=== PATIENT | male | born 1975 | race Caucasian/White ===

== ENCOUNTER → 2016-07-17 | Outpatient (CLI) | payer MEDICAID ==
[~2016-07-17] MED LIST: ACTOS 15MG TAB15 MG PO; ADVICOR 20 MG-51 TER PO; ALLEGRA180 MG PO; AMBIEN5 MG PO; ASPIRIN 32325 MG/TAB PO; C-PAP MACHINE; CLARITIN; CLARITIN 1010 MG/TAB PO; COZAAR 50MG50 MG/TAB PO; ECOTRIN325 MG PO; FLONASE NASAL S16 GM NS; GLUCOPHAGE PO; GLUCOPHAGE XR500 M1 PO; HUMALOGKP50/50; HUMALOGKP50/50 SC; HYZAAR 12.5 MG-1 TAB PO; JANUVIA 100MG100 MG PO; LORTAB 5/500 501 TAB PO; NAPROSYN500 MG PO; NOVOLOG MIX 70/10 ML SQ; NOVOLOG100 U/ML IV; PERCOCET 325 MG1 TA2 PO; PROAIR HFA0.09 MG/AC; SIMCOR 500 MG-21 TER PO; SINGULAIR10 MG PO; TYLENOL W/COD1 UDTAB PO; VITAMIN B121000 MC2 SL; ZYRTEC 10MG PO; ZYRTEC 10MG10 MG PO
== END ==
LOC: COL.VAS 07-04 09:00
DX: I83.008 Varicose veins of unspecified lower extremity with ulcer other part of lower leg (principal); L97.819 Non-pressure chronic ulcer of other part of right lower leg with unspecified severity; L97.829 Non-pressure chronic ulcer of other part of left lower leg with unspecified severity; M79.662 Pain in left lower leg; M79.661 Pain in right lower leg; M79.89 Other specified soft tissue disorders

== ENCOUNTER → 2016-11-29 | Outpatient (CLI) | payer MEDICAID | LOC: WCC 09:30 | DX: L97.829 Non-pressure chronic ulcer of other part of left lower leg with unspecified severity (principal); L97.819 Non-pressure chronic ulcer of other part of right lower leg with unspecified severity; I87.2 Venous insufficiency (chronic) (peripheral) | CPT/HCPCS: G0463 ==

== ENCOUNTER 2017-12-26 11:18 | Inpatient (IN) | payer MEDICAID ==
[~2017-12-26] VITALS: Ht 193 cm; Wt 132.0 kg
[2017-12-26 12:20] LABS: BASO % 0.2 % (0.0-2.0); EOS % 0.1 % (0-4.0); GRAN # 14.1 (1.4-6.5); GRAN % 84.8 % (42.2-75.2); HEMOGLOBIN 13.1 g/dl (13.5-18.0); LYMPH # 0.9 (1.2-3.4); LYMPH % 5.4 % (20.0-51.0); MEAN CELL VOLUME 81 fl (80.0-100.0); MEAN CORPUSCULAR HEMOGLOBIN 27 pg (27.0-31.0); MEAN CORPUSCULAR HGB CONC 33 g/dl (33.0-37.0); MEAN PLATELET VOLUME 10.5 fl (7.4-10.4); MONO # 1.5 (0.1-0.6); PLATELET COUNT 246 K/mm3 (130-400); RED BLOOD COUNT 4.92 M/mm3 (4.20-5.60); REDCELL DISTRIBUTION WIDTH-CV 13.1 % (11.5-14.5)
[2017-12-26 12:32] LABS: ALBUMIN 4.1 gm/dL (3.5-5.0); BILIRUBIN,TOTAL 0.9 mg/dL (0.0-1.0); CALCIUM 9.2 mg/dL (8.4-10.2); CREATININE, serum 1.41 mg/dL (0.66-1.25); POTASSIUM 3.7 mmol/L (3.4-5.0); TOTAL PROTEIN 8.2 gm/dL (6.4-8.2)
[2017-12-26 12:43] LABS: C-REACTIVE PROTEIN 22.1 mg/dL (0.0-0.9)
[2017-12-26] MEDS ORDERED: ACTOS 15MG TAB15 MG PO (18:24)
[2017-12-26] MEDS ORDERED: LOMOTIL 0.025 M1 TAB PO (18:26)
[2017-12-26] MEDS ORDERED: JANUVIA50 MG PO (18:29)
[2017-12-26] MEDS ORDERED: CANA100T PO (18:33)
[2017-12-26] MEDS ORDERED: HUMULIN R 10100 U/ML SQ (18:38)
[2017-12-26] MEDS ORDERED: HUMULIN N 10100 U/ML SQ (18:39)
[2017-12-26] MEDS ORDERED: AMBIEN 10MG10 MG PO (19:50)
[2017-12-26 20:00] VITALS: BP 100/49; PULSE 96; TEMP 97.8
[2017-12-26] MEDS ORDERED: FLONASE NASAL S16 GM NS (21:15)
[2017-12-26] MEDS ORDERED: NIACIN 64 MG-501 TA1 PO (21:22)
[2017-12-26] MEDS ORDERED: ZOCOR 20MG20 MG PO (21:23)
[2017-12-26] MEDS ORDERED: ZOCOR 80MG80 MG PO (21:24)
[2017-12-26] MEDS ORDERED: HYZAAR 25 MG-101 TAB PO (21:40)
[2017-12-26] MEDS ORDERED: ZOCOR 40MG40 MG PO (21:42)
[2017-12-26] MEDS ORDERED: ACTOS30 MG PO (21:43)
[2017-12-26] MEDS ORDERED: NIASPAN1000 MG PO (21:44)
[2017-12-26] MEDS ORDERED: CANA300T PO (21:45)
[2017-12-26] MEDS ORDERED: TRICOR145 MG PO (21:47)
[2017-12-26] MEDS ORDERED: D3-5050000 IU PO (21:49)
[2017-12-26] MEDS ORDERED: TYLENOL W/COD1 UDTAB PO (21:51)
[2017-12-26 23:20] VITALS: BP 104/60; PULSE 94; TEMP 98.2
[2017-12-27 03:35] VITALS: BP 91/53; PULSE 104; TEMP 99.7
[2017-12-27 06:52] LABS: MEAN CELL VOLUME 83 fl (80.0-100.0); MEAN CORPUSCULAR HGB CONC 32 g/dl (33.0-37.0); MEAN PLATELET VOLUME 10.9 fl (7.4-10.4); PLATELET COUNT 256 K/mm3 (130-400); RED BLOOD COUNT 4.15 M/mm3 (4.20-5.60); REDCELL DISTRIBUTION WIDTH-CV 13.1 % (11.5-14.5)
[2017-12-27 06:55] LABS: HEMATOCRIT 34.3 % (42.0-52.0); HEMOGLOBIN 11.1 g/dl (13.5-18.0); MEAN CORPUSCULAR HEMOGLOBIN 27 pg (27.0-31.0)
[2017-12-27 07:07] LABS: CALCIUM 8.2 mg/dL (8.4-10.2); CREATININE, serum 1.57 mg/dL (0.66-1.25); POTASSIUM 3.4 mmol/L (3.4-5.0)
[2017-12-27 07:22] VITALS: BP 88/41; PULSE 99; TEMP 100.1
[2017-12-27 07:34] LABS: BAND 25 % (0-10); LYMPHOCYTE 2 % (20.0-51.0); NEUTROPHILS 67 % (42.0-75.2); TOXIC GRANULATION PRESENT
[2017-12-27 11:40] VITALS: BP 100/50; PULSE 99; TEMP 99.1
[2017-12-27 16:26] VITALS: BP 109/45; PULSE 57; TEMP 100.3
[2017-12-27 20:00] VITALS: BP 92/40; PULSE 94; TEMP 100.4
[2017-12-28 00:26] VITALS: BP 91/51; PULSE 98; TEMP 98.8
[2017-12-28 07:10] LABS: MEAN CELL VOLUME 83 fl (80.0-100.0); MEAN CORPUSCULAR HEMOGLOBIN 27 pg (27.0-31.0); MEAN CORPUSCULAR HGB CONC 32 g/dl (33.0-37.0); MEAN PLATELET VOLUME 10.8 fl (7.4-10.4); PLATELET COUNT 244 K/mm3 (130-400); RED BLOOD COUNT 3.74 M/mm3 (4.20-5.60); REDCELL DISTRIBUTION WIDTH-CV 13.2 % (11.5-14.5)
[2017-12-28 07:18] LABS: CALCIUM 8.2 mg/dL (8.4-10.2); CREATININE, serum 1.79 mg/dL (0.66-1.25); POTASSIUM 3.7 mmol/L (3.4-5.0)
[2017-12-28 07:22] LABS: HEMATOCRIT 31.1 % (42.0-52.0)
[2017-12-28 07:55] VITALS: BP 96/56; PULSE 89; TEMP 99.4
[2017-12-28 09:53] LABS: BAND 10 % (0-10); LYMPHOCYTE 5 % (20.0-51.0); NEUTROPHILS 80 % (42.0-75.2); PLATELET ESTIMATE NORMAL (NORMAL)
[2017-12-28 12:31] VITALS: BP 112/53; PULSE 99; TEMP 98.5
[2017-12-28 16:39] VITALS: BP 132/52; PULSE 99; TEMP 98.2
[2017-12-28 20:00] VITALS: BP 107/44; PULSE 98; TEMP 100.6
[2017-12-28 22:01] VITALS: TEMP 99.1
[2017-12-29 01:18] VITALS: BP 118/55; PULSE 78; TEMP 100.6
[2017-12-29 04:00] VITALS: BP 111/52; PULSE 79; TEMP 98.6
[2017-12-29 07:00] LABS: MEAN CELL VOLUME 82 fl (80.0-100.0); MEAN CORPUSCULAR HGB CONC 32 g/dl (33.0-37.0); MEAN PLATELET VOLUME 10.8 fl (7.4-10.4); PLATELET COUNT 266 K/mm3 (130-400); RED BLOOD COUNT 3.61 M/mm3 (4.20-5.60); REDCELL DISTRIBUTION WIDTH-CV 13.5 % (11.5-14.5)
[2017-12-29 07:12] LABS: HEMATOCRIT 29.7 % (42.0-52.0); HEMOGLOBIN 9.6 g/dl (13.5-18.0); MEAN CORPUSCULAR HEMOGLOBIN 27 pg (27.0-31.0)
[2017-12-29 07:15] LABS: CALCIUM 8.4 mg/dL (8.4-10.2); CREATININE, serum 1.52 mg/dL (0.66-1.25); MAGNESIUM 2.3 mg/dL (1.6-2.3); POTASSIUM 3.7 mmol/L (3.4-5.0)
[2017-12-29 08:36] VITALS: BP 116/61; PULSE 86; TEMP 97.9
[2017-12-29 10:09] LABS: BAND 7 % (0-10); LYMPHOCYTE 6 % (20.0-51.0); NEUTROPHILS 79 % (42.0-75.2)
[2017-12-29 10:10] LABS: PLATELET ESTIMATE NORMAL (NORMAL)
[2017-12-29 12:21] VITALS: BP 133/56; PULSE 93; TEMP 98.4
[2017-12-29 16:10] VITALS: BP 123/54; PULSE 77; TEMP 98.3
[2017-12-29 19:36] VITALS: BP 139/59; PULSE 104; TEMP 99.4
[2017-12-30 00:01] VITALS: BP 104/63; PULSE 81; TEMP 98.6
[2017-12-30 07:15] VITALS: BP 116/57; PULSE 74; TEMP 98.1
[2017-12-30 07:34] LABS: HEMATOCRIT 29.7 % (42.0-52.0); HEMOGLOBIN 9.7 g/dl (13.5-18.0); MEAN CELL VOLUME 81 fl (80.0-100.0); MEAN CORPUSCULAR HEMOGLOBIN 27 pg (27.0-31.0); MEAN CORPUSCULAR HGB CONC 33 g/dl (33.0-37.0); MEAN PLATELET VOLUME 10.5 fl (7.4-10.4); PLATELET COUNT 305 K/mm3 (130-400); RED BLOOD COUNT 3.66 M/mm3 (4.20-5.60); REDCELL DISTRIBUTION WIDTH-CV 13.6 % (11.5-14.5)
[2017-12-30 07:46] LABS: CALCIUM 8.4 mg/dL (8.4-10.2); CREATININE, serum 1.16 mg/dL (0.66-1.25); POTASSIUM 3.6 mmol/L (3.4-5.0)
[2017-12-30 08:11] LABS: C-REACTIVE PROTEIN 29.9 mg/dL (0.0-0.9)
[2017-12-30 12:03] VITALS: BP 117/55; PULSE 77; TEMP 98.2
[2017-12-30 12:05] LABS: BAND 13 % (0-10); LYMPHOCYTE 9 % (20.0-51.0); MYELOCYTE 1 % (0-0); NEUTROPHILS 63 % (42.0-75.2); PLATELET ESTIMATE NORMAL (NORMAL)
[2017-12-30 12:06] LABS: HYPOCHROMIA 2+
[2017-12-30 16:31] VITALS: BP 148/72; PULSE 84; TEMP 100.6
[2017-12-30 21:27] VITALS: BP 99/42; PULSE 80; TEMP 100.3
[2017-12-31 00:11] VITALS: BP 119/97; PULSE 80; TEMP 99.9
[2017-12-31 04:29] VITALS: BP 102/38; PULSE 61; TEMP 97.9
[2017-12-31 06:37] LABS: BASO # 0.1 (0.0-0.2); BASO % 0.5 % (0.0-2.0); EOS # 0.3 (0.0-0.7); EOS % 1.7 % (0-4.0); GRAN # 12.5 (1.4-6.5); GRAN % 70.2 % (42.2-75.2); HEMOGLOBIN 10.3 g/dl (13.5-18.0); LYMPH % 11.4 % (20.0-51.0); MEAN CELL VOLUME 81 fl (80.0-100.0); MEAN CORPUSCULAR HEMOGLOBIN 26 pg (27.0-31.0); MEAN CORPUSCULAR HGB CONC 32 g/dl (33.0-37.0); MEAN PLATELET VOLUME 10.1 fl (7.4-10.4); MONO # 2.6 (0.1-0.6); MONO % 14.6 % (1.7-9.3); PLATELET COUNT 309 K/mm3 (130-400); RED BLOOD COUNT 3.93 M/mm3 (4.20-5.60); REDCELL DISTRIBUTION WIDTH-CV 13.9 % (11.5-14.5)
[2017-12-31 06:44] LABS: HEMATOCRIT 31.9 % (42.0-52.0)
[2017-12-31 06:54] LABS: CALCIUM 8.5 mg/dL (8.4-10.2); CREATININE, serum 0.98 mg/dL (0.66-1.25); POTASSIUM 3.8 mmol/L (3.4-5.0)
[2017-12-31 07:24] VITALS: BP 133/55; PULSE 66; TEMP 97.9
[2017-12-31 07:27] LABS: BAND 11 % (0-10); EOSINOPHIL 2 % (0-4); LYMPHOCYTE 13 % (20.0-51.0); NEUTROPHILS 61 % (42.0-75.2); PLATELET ESTIMATE NORMAL (NORMAL)
[2017-12-31 07:28] LABS: HYPOCHROMIA 1+
[2017-12-31 11:35] VITALS: BP 119/77; PULSE 72; TEMP 98.6
[2017-12-31 23:30] VITALS: BP 111/54; PULSE 74; TEMP 98.6
[2018-01-01 06:21] VITALS: BP 99/50; PULSE 79; TEMP 98.6
[2018-01-01 06:53] LABS: HEMOGLOBIN 8.1 g/dl (13.5-18.0); MEAN CELL VOLUME 82 fl (80.0-100.0); MEAN CORPUSCULAR HEMOGLOBIN 26 pg (27.0-31.0); MEAN CORPUSCULAR HGB CONC 32 g/dl (33.0-37.0); MEAN PLATELET VOLUME 10.2 fl (7.4-10.4); PLATELET COUNT 327 K/mm3 (130-400); RED BLOOD COUNT 3.06 M/mm3 (4.20-5.60); REDCELL DISTRIBUTION WIDTH-CV 14.1 % (11.5-14.5)
[2018-01-01 07:00] LABS: CALCIUM 7.9 mg/dL (8.4-10.2); CREATININE, serum 0.86 mg/dL (0.66-1.25); POTASSIUM 3.8 mmol/L (3.4-5.0)
[2018-01-01 07:42] LABS: BAND 6 % (0-10); EOSINOPHIL 8 % (0-4); LYMPHOCYTE 13 % (20.0-51.0); NEUTROPHILS 61 % (42.0-75.2)
[2018-01-01 07:43] LABS: HYPOCHROMIA 1+; PLATELET ESTIMATE NORMAL (NORMAL)
[2018-01-01 11:42] VITALS: BP 107/45; PULSE 97; TEMP 98.2
[2018-01-01 15:50] VITALS: BP 106/51; PULSE 83; TEMP 98.2
[2018-01-01 20:00] VITALS: BP 108/43; PULSE 82; TEMP 99.1
[2018-01-02] VITALS (7 sets, daily range): BP systolic 107–126; BP diastolic 42–62; PULSE 67–87; TEMP 97.6–99.2
[2018-01-02 07:25] LABS: MEAN CELL VOLUME 83 fl (80.0-100.0); MEAN CORPUSCULAR HGB CONC 32 g/dl (33.0-37.0); MEAN PLATELET VOLUME 9.7 fl (7.4-10.4); PLATELET COUNT 367 K/mm3 (130-400); RED BLOOD COUNT 3.09 M/mm3 (4.20-5.60); REDCELL DISTRIBUTION WIDTH-CV 14.1 % (11.5-14.5)
[2018-01-02 07:29] LABS: HEMATOCRIT 25.5 % (42.0-52.0); HEMOGLOBIN 8.1 g/dl (13.5-18.0); MEAN CORPUSCULAR HEMOGLOBIN 26 pg (27.0-31.0)
[2018-01-02 07:40] LABS: CALCIUM 8.3 mg/dL (8.4-10.2); CREATININE, serum 0.82 mg/dL (0.66-1.25); POTASSIUM 3.9 mmol/L (3.4-5.0)
[2018-01-02 10:02] LABS: BAND 11 % (0-10); EOSINOPHIL 2 % (0-4); HYPOCHROMIA 2+; LYMPHOCYTE 15 % (20.0-51.0); METAMYELOCYTE 1 % (0-0); NEUTROPHILS 61 % (42.0-75.2); PLATELET ESTIMATE NORMAL (NORMAL)
[2018-01-03 04:00] VITALS: BP 113/65; PULSE 79; TEMP 98.2
[2018-01-03 07:05] LABS: MEAN CELL VOLUME 84 fl (80.0-100.0); MEAN CORPUSCULAR HGB CONC 31 g/dl (33.0-37.0); MEAN PLATELET VOLUME 9.6 fl (7.4-10.4); PLATELET COUNT 436 K/mm3 (130-400); RED BLOOD COUNT 3.28 M/mm3 (4.20-5.60); REDCELL DISTRIBUTION WIDTH-CV 14.2 % (11.5-14.5)
[2018-01-03 07:09] LABS: HEMATOCRIT 27.6 % (42.0-52.0); HEMOGLOBIN 8.5 g/dl (13.5-18.0); MEAN CORPUSCULAR HEMOGLOBIN 26 pg (27.0-31.0)
[2018-01-03 07:16] LABS: CALCIUM 8.6 mg/dL (8.4-10.2); CREATININE, serum 0.87 mg/dL (0.66-1.25); POTASSIUM 4.3 mmol/L (3.4-5.0)
[2018-01-03 09:01] LABS: BAND 1 % (0-10); EOSINOPHIL 2 % (0-4); LYMPHOCYTE 18 % (20.0-51.0); METAMYELOCYTE 3 % (0-0); MICROCYTOSIS 1+; NEUTROPHILS 73 % (42.0-75.2); PLATELET ESTIMATE INCREASED (NORMAL)
[2018-01-03 10:05] VITALS: BP 106/46; PULSE 61; TEMP 97.9
[2018-01-03 11:07] VITALS: BP 114/56; PULSE 60; TEMP 97.8
[2018-01-03 16:39] VITALS: BP 122/55; PULSE 87; TEMP 100.5
[2018-01-03 20:40] VITALS: BP 98/49; PULSE 89; TEMP 100.2
[2018-01-04] VITALS (7 sets, daily range): BP systolic 104–130; BP diastolic 38–65; PULSE 74–93; TEMP 97.5–100.2
[2018-01-04 07:36] LABS: MEAN CELL VOLUME 84 fl (80.0-100.0); MEAN CORPUSCULAR HGB CONC 31 g/dl (33.0-37.0); MEAN PLATELET VOLUME 9.5 fl (7.4-10.4); PLATELET COUNT 394 K/mm3 (130-400); RED BLOOD COUNT 3.04 M/mm3 (4.20-5.60); REDCELL DISTRIBUTION WIDTH-CV 14.2 % (11.5-14.5)
[2018-01-04 07:48] LABS: HEMATOCRIT 25.5 % (42.0-52.0); MEAN CORPUSCULAR HEMOGLOBIN 26 pg (27.0-31.0)
[2018-01-04 07:54] LABS: CALCIUM 8.2 mg/dL (8.4-10.2); CREATININE, serum 0.96 mg/dL (0.66-1.25); POTASSIUM 4.3 mmol/L (3.4-5.0)
[2018-01-04 08:22] LABS: BAND 5 % (0-10); EOSINOPHIL 1 % (0-4); LYMPHOCYTE 15 % (20.0-51.0); NEUTROPHILS 73 % (42.0-75.2)
[2018-01-04 08:23] LABS: HYPOCHROMIA 2+; PLATELET ESTIMATE NORMAL (NORMAL)
[2018-01-05 03:56] VITALS: BP 111/49; PULSE 87; TEMP 98.3
[2018-01-05 08:21] VITALS: BP 116/58; PULSE 101; TEMP 98.4
[2018-01-05 08:53] LABS: MEAN CELL VOLUME 82 fl (80.0-100.0); MEAN CORPUSCULAR HGB CONC 32 g/dl (33.0-37.0); MEAN PLATELET VOLUME 9.6 fl (7.4-10.4); PLATELET COUNT 462 K/mm3 (130-400); RED BLOOD COUNT 3.37 M/mm3 (4.20-5.60)
[2018-01-05 08:56] LABS: HEMATOCRIT 27.6 % (42.0-52.0); HEMOGLOBIN 8.8 g/dl (13.5-18.0); MEAN CORPUSCULAR HEMOGLOBIN 26 pg (27.0-31.0)
[2018-01-05 09:08] LABS: BAND 7 % (0-10); EOSINOPHIL 4 % (0-4); LYMPHOCYTE 12 % (20.0-51.0); METAMYELOCYTE 1 % (0-0); NEUTROPHILS 71 % (42.0-75.2); PLATELET ESTIMATE INCREASED (NORMAL)
[2018-01-05 09:09] LABS: CALCIUM 8.6 mg/dL (8.4-10.2); CREATININE, serum 0.91 mg/dL (0.66-1.25); HYPOCHROMIA 2+; POTASSIUM 4.5 mmol/L (3.4-5.0)
[2018-01-05 11:52] VITALS: BP 121/62; PULSE 81; TEMP 97.9
[2018-01-05 16:24] VITALS: BP 125/56; PULSE 75; TEMP 98.2
[2018-01-05 20:00] VITALS: BP 98/60; PULSE 85; TEMP 97.4
[2018-01-06] VITALS (8 sets, daily range): BP systolic 101–120; BP diastolic 50–63; PULSE 70–98; TEMP 97.2–99.3
[2018-01-06 06:32] LABS: BASO # 0.1 (0.0-0.2); BASO % 0.3 % (0.0-2.0); EOS # 0.4 (0.0-0.7); EOS % 2.8 % (0-4.0); GRAN # 11.9 (1.4-6.5); GRAN % 76.4 % (42.2-75.2); HEMOGLOBIN 9.3 g/dl (13.5-18.0); LYMPH # 1.8 (1.2-3.4); LYMPH % 11.5 % (20.0-51.0); MEAN CELL VOLUME 83 fl (80.0-100.0); MEAN CORPUSCULAR HEMOGLOBIN 26 pg (27.0-31.0); MEAN CORPUSCULAR HGB CONC 31 g/dl (33.0-37.0); MEAN PLATELET VOLUME 9.5 fl (7.4-10.4); MONO # 1.2 (0.1-0.6); MONO % 7.7 % (1.7-9.3); PLATELET COUNT 520 K/mm3 (130-400); RED BLOOD COUNT 3.61 M/mm3 (4.20-5.60); REDCELL DISTRIBUTION WIDTH-CV 13.9 % (11.5-14.5)
[2018-01-06 06:41] LABS: CREATININE, serum 0.95 mg/dL (0.66-1.25); POTASSIUM 4.7 mmol/L (3.4-5.0)
[2018-01-06 08:38] LABS: PATHOLOGY DIFF REVIEW OK
[2018-01-06 20:27] LABS: PH 7 (5-8); SQUAMOUS EPITHELIAL None Seen /hpf; URINE APPEARANCE Clear; URINE BACTERIA None Seen /hpf; URINE BILIRUBIN Negative (NEGATIVE); URINE BLOOD Negative (NEGATIVE); URINE COLOR Straw; URINE GLUCOSE 1+ (NEGATIVE); URINE KETONE Negative (NEGATIVE); URINE LEUKOCYTE ESTERASE Negative (NEGATIVE); URINE NITRATE Negative (NEGATIVE); URINE PROTEIN(semi-quant) Negative (NEGATIVE); URINE RBC None Seen /hpf; URINE UROBILINOGEN Negative (NEGATIVE)
[2018-01-06 20:40] LABS: COLLECTION METHOD CLEAN CATCH
[2018-01-07 03:20] VITALS: BP 119/52; PULSE 84; TEMP 98.4
[2018-01-07 07:11] LABS: BASO # 0.1 (0.0-0.2); BASO % 0.5 % (0.0-2.0); EOS # 0.6 (0.0-0.7); EOS % 5.3 % (0-4.0); GRAN # 7.4 (1.4-6.5); GRAN % 67.9 % (42.2-75.2); LYMPH # 1.7 (1.2-3.4); LYMPH % 15.7 % (20.0-51.0); MEAN CELL VOLUME 83 fl (80.0-100.0); MEAN CORPUSCULAR HGB CONC 31 g/dl (33.0-37.0); MEAN PLATELET VOLUME 9.4 fl (7.4-10.4); MONO % 9.4 % (1.7-9.3); PLATELET COUNT 537 K/mm3 (130-400); RED BLOOD COUNT 3.66 M/mm3 (4.20-5.60); REDCELL DISTRIBUTION WIDTH-CV 13.8 % (11.5-14.5)
[2018-01-07 07:17] LABS: HEMATOCRIT 30.4 % (42.0-52.0); HEMOGLOBIN 9.5 g/dl (13.5-18.0); MEAN CORPUSCULAR HEMOGLOBIN 26 pg (27.0-31.0)
[2018-01-07 07:31] LABS: CALCIUM 8.8 mg/dL (8.4-10.2); CREATININE, serum 0.83 mg/dL (0.66-1.25); MAGNESIUM 1.7 mg/dL (1.6-2.3); POTASSIUM 4.2 mmol/L (3.4-5.0)
[2018-01-07] MEDS ORDERED: DULCOLAX S10 MG/SUPP RC (07:31)
[2018-01-07] MEDS ORDERED: TYLENOL 325MG325 MG PO (07:31)
[2018-01-07] MEDS ORDERED: NORCO 325 MG-7.1 TAB PO (07:32)
[2018-01-07] MEDS ORDERED: COLACE 100100 MG/CAP PO (07:32)
[2018-01-07] MEDS ORDERED: MIRALAX PA17 GM/Dose PO (07:32)
[2018-01-07] MEDS ORDERED: SENOKOT S 50 MG1 TAB PO (07:32)
[2018-01-07 07:48] VITALS: BP 95/53; PULSE 80; TEMP 97.8
[2018-01-07] MEDS ORDERED: AMOXICILLIN 8751 TAB PO (08:27)
[2018-01-07] MEDS ORDERED: LOMOTIL 0.025 M1 TAB PO (11:31)
[2018-01-07] MEDS ORDERED: AMBIEN 10MG10 MG PO (11:31)
[2018-01-07 11:37] VITALS: BP 109/52; PULSE 107; TEMP 98
[2018-01-07 12:51] VITALS: BP 109/52; PULSE 107; TEMP 98
== END 2018-01-07 15:06 | DRG 854 ==
LOC: COL.ER 11:18 → MEDICAL 17:47
PROVIDERS: Hospitalist; Internal Medicine; Internal Medicine Infectious Disease; Nurse Practitioner Family; Orthopaedic Surgery; Physician Assistant
PROC: 0Y6M0ZC Detachment at Right Foot, Partial 3rd Ray, Open Approach (ICD-10-PCS; 2017-12-31)
PROC: 0Y6M0ZD Detachment at Right Foot, Partial 4th Ray, Open Approach (ICD-10-PCS; 2017-12-31)
PROC: 0Y6M0ZF Detachment at Right Foot, Partial 5th Ray, Open Approach (ICD-10-PCS; 2017-12-31)
PROC: 0Y6M0Z9 Detachment at Right Foot, Partial 1st Ray, Open Approach (ICD-10-PCS; principal; 2017-12-31 16:00)
PROC: 0Y6M0ZB Detachment at Right Foot, Partial 2nd Ray, Open Approach (ICD-10-PCS; 2017-12-31 16:00)
PROC: 0QBN0ZZ Excision of Right Metatarsal, Open Approach (ICD-10-PCS; 2018-01-03)
PROC: 2W5 Placement, Anatomical Regions, Removal (ICD-10-PCS; 2018-01-06)
PROC: 2W3SX1Z Immobilization of Right Foot using Splint (ICD-10-PCS; 2018-01-06)
DX: A41.9 Sepsis, unspecified organism (principal); L97.418 Non-pressure chronic ulcer of right heel and midfoot with other specified severity; L02.611 Cutaneous abscess of right foot; N17.9 Acute kidney failure, unspecified; E11.52 Type 2 diabetes mellitus with diabetic peripheral angiopathy with gangrene; I96 Gangrene, not elsewhere classified; E11.65 Type 2 diabetes mellitus with hyperglycemia; E11.628 Type 2 diabetes mellitus with other skin complications; B95.61 Methicillin susceptible Staphylococcus aureus infection as the cause of diseases classified elsewhere; E11.621 Type 2 diabetes mellitus with foot ulcer; E11.42 Type 2 diabetes mellitus with diabetic polyneuropathy; Z79.4 Long term (current) use of insulin; I10 Essential (primary) hypertension; F60.3 Borderline personality disorder
CPT/HCPCS: 99222-AI; 99231-AI; 99232-AI; 99233-AI; 99239; J1170; J1644; J1815; J1885; J2185; J2250; J2270; J2405; J2543; J2550; J2704; J2765; J2795; J3010; J3370; J7030; J7040; J7050

== ENCOUNTER 2018-02-24 16:01 | Inpatient (IN) | payer MEDICAID ==
[~2018-02-24] VITALS: Ht 193 cm; Wt 132.0 kg
[~2018-02-24 16:01] MED LIST changes: +ACTOS30 MG PO; +AMBIEN 10MG10 MG PO; +AMOXICILLIN 8751 TAB PO; +CANA100T PO; +CANA300T PO; +COLACE 100100 MG/CAP PO; +D3-5050000 IU PO; +DULCOLAX S10 MG/SUPP RC; +HUMULIN N 10100 U/ML SQ; +HUMULIN R 10100 U/ML SQ; +HYZAAR 25 MG-101 TAB PO; +JANUVIA50 MG PO; +LOMOTIL 0.025 M1 TAB PO; +MIRALAX PA17 GM/Dose PO; +NIACIN 64 MG-501 TA1 PO; +NIASPAN1000 MG PO; +NORCO 325 MG-7.1 TAB PO; +SENOKOT S 50 MG1 TAB PO; +TRICOR145 MG PO; +TYLENOL 325MG325 MG PO; +ZOCOR 20MG20 MG PO; +ZOCOR 40MG40 MG PO; +ZOCOR 80MG80 MG PO
[2018-02-25] VITALS (14 sets, daily range): BP systolic 105–138; BP diastolic 55–83; PULSE 81–114; TEMP 97.5–99.3
[2018-02-25 10:59] LABS: CALCIUM 9.3 mg/dL (8.4-10.2); CREATININE, serum 0.82 mg/dL (0.66-1.25); POTASSIUM 3.8 mmol/L (3.4-5.0)
[2018-02-25] MEDS ORDERED: COZAAR 25MG25 MG/TAB PO (11:12)
[2018-02-25] MEDS ORDERED: TYLENOL W/COD1 UDTAB PO (11:14)
[2018-02-25] MEDS ORDERED: D3-5050000 IU PO (11:17)
[2018-02-26 00:34] VITALS: BP 135/64; PULSE 91; TEMP 99.3
[2018-02-26 04:58] VITALS: BP 127/64; PULSE 92; TEMP 101.4
[2018-02-26 08:00] VITALS: BP 133/64; PULSE 91; TEMP 99.2
[2018-02-26 11:07] VITALS: BP 132/69; PULSE 95; TEMP 97.5
[2018-02-26 16:00] VITALS: BP 145/68; PULSE 94; TEMP 99.2
[2018-02-27] VITALS (8 sets, daily range): BP systolic 131–160; BP diastolic 62–83; PULSE 76–98; TEMP 97.5–100.1
[2018-02-28 03:26] VITALS: BP 140/73; PULSE 87; TEMP 99
[2018-02-28 08:37] VITALS: BP 135/78; PULSE 84; TEMP 98.3
[2018-02-28] MEDS ORDERED: NORCO 325 MG-7.1 TAB PO (10:03)
[2018-02-28 14:59] VITALS: BP 135/78; PULSE 84; TEMP 98.3
== END 2018-02-28 15:45 | DRG 475 ==
LOC: SURG 02-25 10:04 → INPTSU 02-25 10:04 → SURG 02-25 13:45
PROVIDERS: Nurse Anesthetist, Certified Registered; Orthopaedic Surgery
PROC: 0Y6H0Z1 Detachment at Right Lower Leg, High, Open Approach (ICD-10-PCS; principal; 2018-02-25 13:45)
DX: T87.81 Dehiscence of amputation stump (principal); Z68.42 Body mass index [BMI] 45.0-49.9, adult; E11.9 Type 2 diabetes mellitus without complications; I10 Essential (primary) hypertension; Z79.4 Long term (current) use of insulin; Z89.431 Acquired absence of right foot; E66.9 Obesity, unspecified
CPT/HCPCS: A9284; J1650; J1815; J2250; J2270; J2405; J2704; J2795; J3010; J7030; L1830

== ENCOUNTER 2018-04-28 09:17 | Day surgery (SDC) | payer MEDICAID ==
[~2018-04-28] VITALS: Ht 193 cm; Wt 166.0 kg
[2018-04-28] VITALS (7 sets, daily range): BP systolic 111–130; BP diastolic 56–76; PULSE 82–100; TEMP 97.7–98.5
[~2018-04-28 09:17] MED LIST changes: +COZAAR 25MG25 MG/TAB PO
[2018-04-28] MEDS ORDERED: FLONASEALLERGY NS (10:33)
[2018-04-28] MEDS ORDERED: BACTRIM DS 8001 TAB PO (16:47)
== END 2018-04-28 17:54 | disposition home or self-care (01) ==
LOC: SDCO 09:17
DX: T87.89 Other complications of amputation stump (principal); G47.33 Obstructive sleep apnea (adult) (pediatric); J30.2 Other seasonal allergic rhinitis; E66.01 Morbid (severe) obesity due to excess calories; F32.9 Major depressive disorder, single episode, unspecified; E11.22 Type 2 diabetes mellitus with diabetic chronic kidney disease; N18.9 Chronic kidney disease, unspecified; Z79.82 Long term (current) use of aspirin; Z79.84 Long term (current) use of oral hypoglycemic drugs; Z88.1 Allergy status to other antibiotic agents; Z88.8 Allergy status to other drugs, medicaments and biological substances; Z88.6 Allergy status to analgesic agent; Z91.013 Allergy to seafood
CPT/HCPCS: J1100; J1170; J2250; J2405; J2704; J3010; J7030

== ENCOUNTER → 2018-05-29 | Outpatient (CLI) | payer MEDICAID ==
[~2018-05-29] MED LIST changes: +BACTRIM DS 8001 TAB PO; +FLONASEALLERGY NS
== END ==
LOC: ZCOL.LAB 14:28
DX: T81.31XA Disruption of external operation (surgical) wound, not elsewhere classified, initial encounter (principal)

== ENCOUNTER 2018-10-31 17:19 | Emergency (ER) | payer MEDICAID ==
[~2018-10-31] VITALS: Ht 193 cm; Wt 200.0 kg
[2018-10-31 17:26] VITALS: TEMP 97.7
[2018-10-31 21:51] VITALS: BP 151/91; PULSE 108
== END 2018-10-31 21:51 | disposition home or self-care (01) ==
LOC: COL.ER 17:19
DX: K56.41 Fecal impaction (principal); E11.9 Type 2 diabetes mellitus without complications; I10 Essential (primary) hypertension; E78.00 Pure hypercholesterolemia, unspecified; Z79.82 Long term (current) use of aspirin; Z79.84 Long term (current) use of oral hypoglycemic drugs

== ENCOUNTER → 2018-12-04 | Outpatient (CLI) | payer MEDICAID ==
[2018-12-04 13:57] LABS: ALBUMIN 3.4 gm/dL (3.5-5.0); BILIRUBIN,TOTAL 0.4 mg/dL (0.0-1.0); CALCIUM 9.2 mg/dL (8.4-10.2); CHOLESTEROL RISK RATIO 3.2; CREATININE, serum 1.04 (0.66-1.25); POTASSIUM 4.1 mmol/L (3.4-5.0); TOTAL PROTEIN 6.4 gm/dL (6.4-8.2)
== END ==
LOC: ZCOL.LAB 09:22
PROVIDERS: Family Medicine
DX: E78.5 Hyperlipidemia, unspecified (principal); I10 Essential (primary) hypertension; E11.40 Type 2 diabetes mellitus with diabetic neuropathy, unspecified

== ENCOUNTER 2018-12-16 14:15 | Outpatient (RCR) | payer MEDICAID | END 2018-12-29 | LOC: WSPT | DX: Z89.511 Acquired absence of right leg below knee (principal) ==

== ENCOUNTER → 2019-02-25 | Outpatient (CLI) | payer MEDICAID ==
[2019-02-25 11:01] LABS: ALBUMIN 3.6 gm/dL (3.5-5.0); BILIRUBIN,TOTAL 0.5 mg/dL (0.0-1.0); CALCIUM 9.4 mg/dL (8.4-10.2); CHOLESTEROL RISK RATIO 3.5; CREATININE, serum 1.07 (0.66-1.25); POTASSIUM 4.5 mmol/L (3.4-5.0); TOTAL PROTEIN 6.6 gm/dL (6.4-8.2)
== END ==
LOC: ZCOL.LAB 10:33
PROVIDERS: Family Medicine
DX: E11.40 Type 2 diabetes mellitus with diabetic neuropathy, unspecified (principal); E78.5 Hyperlipidemia, unspecified; E55.9 Vitamin D deficiency, unspecified

== ENCOUNTER → 2019-03-05 | Outpatient (CLI) | payer MEDICAID | LOC: ZCOL.LAB 08:00 | DX: R74.8 Abnormal levels of other serum enzymes (principal) ==

== ENCOUNTER 2019-04-21 11:50 | Emergency (ER) | payer MEDICAID ==
[~2019-04-21] VITALS: Ht 193 cm; Wt 209.1 kg
[2019-04-21] MEDS ORDERED: HUMALOG PEN100 U/ML SQ (12:45)
[2019-04-21] MEDS ORDERED: HUMULIN N PE100 U/ML SQ (12:46)
[2019-04-21] MEDS ORDERED: GERI-TUSSI100 MG/5 M PO (12:47)
[2019-04-21] MEDS ORDERED: MIRALAX PA17 GM/Dose PO (12:48)
[2019-04-21] MEDS ORDERED: SINGULAIR 110 MG/TAB PO (12:52)
[2019-04-21] MEDS ORDERED: ZYRTEC 10MG10 MG PO (12:54)
[2019-04-21] MEDS ORDERED: B-121000 MCG PO (12:59)
[2019-04-21] MEDS ORDERED: JANUVIA 100MG100 MG PO (12:59)
[2019-04-21] MEDS ORDERED: NEURONTIN300 MG/CAP PO (13:01)
[2019-04-21] MEDS ORDERED: ZOCOR 40MG40 MG PO (13:01)
[2019-04-21] MEDS ORDERED: DULCOLAX TAB5 MG PO (13:03)
[2019-04-21] MEDS ORDERED: ACTOS30 MG PO (13:03)
[2019-04-21] MEDS ORDERED: HYZAAR 25 MG-101 TAB PO (13:03)
[2019-04-21 13:08] LABS: BASO % 0.6 % (0.0-2.0); EOS # 0.4 (0.0-0.7); EOS % 5.8 % (0-4.0); GRAN # 3.9 (1.4-6.5); GRAN % 55.1 % (42.2-75.2); HEMOGLOBIN 11.2 g/dl (13.5-18.0); LYMPH # 1.9 (1.2-3.4); LYMPH % 26.3 % (20.0-51.0); MEAN CELL VOLUME 83 fl (80.0-100.0); MEAN CORPUSCULAR HEMOGLOBIN 26 pg (27.0-31.0); MEAN CORPUSCULAR HGB CONC 31 g/dl (33.0-37.0); MEAN PLATELET VOLUME 10.6 fl (7.4-10.4); MONO # 0.8 (0.1-0.6); MONO % 11.8 % (1.7-9.3); PLATELET COUNT 240 K/mm3 (130-400); RED BLOOD COUNT 4.34 M/mm3 (4.20-5.60); REDCELL DISTRIBUTION WIDTH-CV 15.2 % (11.5-14.5)
[2019-04-21 13:12] LABS: HEMATOCRIT 36.2 % (42.0-52.0)
[2019-04-21 13:18] LABS: ALBUMIN 3.7 gm/dL (3.5-5.0); BILIRUBIN,TOTAL 0.5 mg/dL (0.0-1.0); C-REACTIVE PROTEIN 0.7 mg/dL (0.0-0.9); POTASSIUM 3.9 mmol/L (3.4-5.0); TOTAL PROTEIN 7.1 gm/dL (6.4-8.2)
[2019-04-21 13:29] LABS: ERYTHROCYTE SEDIMENTATION RATE 33 mm/hr (0-15)
[2019-04-21] MEDS ORDERED: VANCO 1.51.5 GM/250 IV (15:31)
[2019-04-21] MEDS ORDERED: LEVAQUIN 750MG750 M1 PO (15:31)
[2019-04-21 18:40] VITALS: BP 132/70; PULSE 82; TEMP 97.8
== END 2019-04-21 18:40 | disposition home or self-care (01) ==
LOC: COL.ER 11:50
PROVIDERS: Emergency Medicine
DX: M86.9 Osteomyelitis, unspecified (principal); E66.9 Obesity, unspecified; Z79.82 Long term (current) use of aspirin; Z79.51 Long term (current) use of inhaled steroids; Z79.84 Long term (current) use of oral hypoglycemic drugs
CPT/HCPCS: C1751; J1956; J3370; J7040

== ENCOUNTER → 2019-04-30 | Outpatient (CLI) | payer MEDICAID ==
[~2019-04-30] MED LIST changes: +B-121000 MCG PO; +DULCOLAX TAB5 MG PO; +GERI-TUSSI100 MG/5 M PO; +HUMALOG PEN100 U/ML SQ; +HUMULIN N PE100 U/ML SQ; +LEVAQUIN 750MG750 M1 PO; +NEURONTIN300 MG/CAP PO; +SINGULAIR 110 MG/TAB PO; +VANCO 1.51.5 GM/250 IV
== END ==
LOC: COL.RAD 13:15
DX: M86.8X8 Other osteomyelitis, other site (principal); L08.9 Local infection of the skin and subcutaneous tissue, unspecified

== ENCOUNTER 2019-05-05 10:55 | Day surgery (SDC) | payer MEDICAID ==
[~2019-05-05] VITALS: Ht 193 cm; Wt 211.2 kg
[2019-05-05] MEDS ORDERED: NORCO 325 MG-7.1 TAB PO ×2 (12:30→12:33)
[2019-05-05 12:31] VITALS: BP 153/52; PULSE 76; TEMP 98.1
[2019-05-05] MEDS ORDERED: ASTEPRO205.5 MCG/ NS (12:46)
--- NOTE | 2019-05-05 12:55 | NUR ---
Patient to the PACU at this time for a block with anesthesia.
--- NOTE | 2019-05-05 13:30 | NUR ---
patient here for surgery. PICC intact right upper arm. With sterile technique right upper arm PICC dressing change done with insertion site cleansed with ChloraPrep 1, gauze removed, chlorhexidine impregnated disc applied, skin prep, StatLock, and Tegaderm applied. No signs or symptoms of IV complications noted. no concerns voiced. Both ports flushed with 10 mL normal saline with a blood return. both caps changed.
[2019-05-05 15:00] VITALS: BP 130/53; PULSE 81; TEMP 97.9
--- NOTE | 2019-05-05 15:00 | NUR ---
Patient arrives to [facility] via cart, accompanied by TECHNICIAN TRAINEE and STAFF DEVELOPMENT MANAGER. Bedside report received. Patient is alert and oriented, sitting up in bed. He denies any pain, nausea, or need at this time. He is able to perceive light touch on his LLE. His operative site is covered with a clean, dry, intact dressing. His leg is elevated. He is able to move his LLE. Offered and received a soda, jello, and a muffin to eat. Call light in reach. Monitoring was applied - VSS and WNL on room air.
[2019-05-05 15:15] VITALS: BP 116/90; PULSE 78
--- NOTE | 2019-05-05 15:15 | NUR ---
VSS and WNL on room air. He denies any pain, nausea, or need. Tolerating PO well. Dressing remains clean, dry, intact.
--- NOTE | 2019-05-05 15:20 | NUR ---
Report called to STEW Gross at [facility] at this time.
[2019-05-05 15:30] VITALS: BP 135/74; PULSE 81
--- NOTE | 2019-05-05 15:30 | NUR ---
VSS and WNL on room air. Denies any pain, nausea, or need. Dressing clean, dry, intact.
--- NOTE | 2019-05-05 15:55 | NUR ---
Patient has met discharge criteria. Discharge instructions discussed, denies any questions, and verbalizes understanding. PICC line disconnected from IVF and flushed per protocol. Assisted patient to change clothing and into his personal wheelchair. Escorted to exit via wheelchair. Discharged to home with ride provided by [employer] at 1555.
== END 2019-05-05 15:55 | disposition home or self-care (01) ==
LOC: SDCO 10:55
DX: M86.8X7 Other osteomyelitis, ankle and foot (principal); I10 Essential (primary) hypertension; G47.33 Obstructive sleep apnea (adult) (pediatric); K21.9 Gastro-esophageal reflux disease without esophagitis; F32.9 Major depressive disorder, single episode, unspecified; E11.42 Type 2 diabetes mellitus with diabetic polyneuropathy; Z89.511 Acquired absence of right leg below knee; Z79.82 Long term (current) use of aspirin; Z79.84 Long term (current) use of oral hypoglycemic drugs; Z88.1 Allergy status to other antibiotic agents; Z88.8 Allergy status to other drugs, medicaments and biological substances; Z91.013 Allergy to seafood
CPT/HCPCS: J2250; J2704; J2795; J3010; J3370; J7050

== ENCOUNTER → 2019-05-08 | Outpatient (CLI) | payer MEDICAID ==
[~2019-05-08] MED LIST changes: +ASTEPRO205.5 MCG/ NS
== END ==
LOC: ZCOL.LAB 15:56
DX: T81.31XA Disruption of external operation (surgical) wound, not elsewhere classified, initial encounter (principal)

== ENCOUNTER → 2019-07-17 | Outpatient (CLI) | payer MEDICAID ==
[2019-07-17 22:54] LABS: HIV 1/2 Antibodies Non-Reactive; HIV-1p24 Antigen Non-Reactive
[2019-07-18 16:29] LABS: HEPATITIS B SURFACE ANTIBODY <2.0 (()); HEPATITIS B SURFACE ANTIGEN Negative (Negative); HEPATITIS C VIRUS ANTIBODY Negative (Negative)
== END ==
LOC: COL.LAB 21:07
PROVIDERS: Family Medicine
DX: Z01.89 Encounter for other specified special examinations (principal)

== ENCOUNTER → 2019-09-07 | Outpatient (CLI) | payer MEDICAID ==
[2019-09-07 13:02] LABS: ALBUMIN 3.5 gm/dL (3.5-5.0); BILIRUBIN,TOTAL 0.8 mg/dL (0.0-1.0); CREATININE, serum 0.79 (0.66-1.25); POTASSIUM 4.6 mmol/L (3.4-5.0); TOTAL PROTEIN 6.7 gm/dL (6.4-8.2)
== END ==
LOC: ZCOL.LAB 11:59
PROVIDERS: Family Medicine
DX: E11.40 Type 2 diabetes mellitus with diabetic neuropathy, unspecified (principal)

== ENCOUNTER 2020-08-25 10:03 | Emergency (ER) | payer MEDICAID ==
[~2020-08-25] VITALS: Ht 193 cm; Wt 159.1 kg
[2020-08-25 10:05] VITALS: TEMP 98.6
[2020-08-25 12:30] VITALS: BP 159/79; PULSE 77
--- NOTE | 2020-08-25 14:48 | NUR ---
Bundler consulted to set up transportation. The patient has Medicaid [place]. This Dental Office Coordinator contacted the health plan. They will be able to provide transport. Confirmation # [id number]. SW collaborated the above information with the ED community specialist.
== END 2020-08-25 16:20 | disposition home or self-care (01) ==
LOC: COL.ER 10:03
DX: R42 Dizziness and giddiness (principal); R11.2 Nausea with vomiting, unspecified; T40.2X5A Adverse effect of other opioids, initial encounter; Z88.6 Allergy status to analgesic agent; Z88.8 Allergy status to other drugs, medicaments and biological substances; Z88.1 Allergy status to other antibiotic agents; Z89.511 Acquired absence of right leg below knee; Z79.4 Long term (current) use of insulin; Z79.82 Long term (current) use of aspirin
CPT/HCPCS: J2405; J7030

== ENCOUNTER 2023-06-27 05:37 | Observation (INO) | payer MEDICAID ==
[~2023-06-27] VITALS: Ht 193 cm; Wt 206.1 kg
[2023-06-27] VITALS (11 sets, daily range): BP systolic 140–196; BP diastolic 77–110; PULSE 24–98; TEMP 98–99.1
[~2023-06-27 05:37] MED LIST changes: +FLOMAX 0.40.4 MG/CAP PO
[2023-06-27 06:14] LABS: BASO % 0.3 % (0.0-2.0); EOS # 0.2 K/mm3 (0.0-0.7); EOS % 1.7 % (0.0-4.0); GRAN % 79.2 % (42.2-75.2); HEMATOCRIT 39.2 % (42.0-52.0); HEMOGLOBIN 11.8 g/dl (13.5-18.0); LYMPH # 0.8 K/mm3 (1.2-3.4); LYMPH % 9.2 % (20.0-51.0); MEAN CELL VOLUME 83 fl (80.0-100.0); MEAN CORPUSCULAR HEMOGLOBIN 25 pg (27-31); MEAN CORPUSCULAR HGB CONC 30 g/dl (33.0-37.0); MEAN PLATELET VOLUME 10.1 fl (7.4-10.4); MONO # 0.8 K/mm3 (0.1-0.6); PLATELET COUNT 228 K/mm3 (130-400); RED BLOOD COUNT 4.71 M/mm3 (4.20-5.60); REDCELL DISTRIBUTION WIDTH-CV 15.7 % (11.5-14.5)
[2023-06-27 06:20] LABS: ALBUMIN 2.7 gm/dL (3.5-5.0); BILIRUBIN,TOTAL 1.1 mg/dL (0.2-1.2); C-REACTIVE PROTEIN 0.57 mg/dL (0.00-0.50); CALCIUM 8.8 mg/dL (8.4-10.2); CREATININE, serum 0.95 mg/dL (0.72-1.25); POTASSIUM 3.9 mmol/L (3.5-4.5)
[2023-06-27 06:31] LABS: TROPONIN-I 0.063 ng/mL (0.00-0.033)
[2023-06-27 06:50] LABS: INR 1.2 (0.8-3.0); PROTHROMBIN TIME 13.3 SECONDS (9.7-12.8)
[2023-06-27 06:53] LABS: PARTIAL THROMBOPLASTIN TIME 36.2 SECONDS (26.0-37.0)
[2023-06-27 09:35] LABS: CHOLESTEROL RISK RATIO 3.1
[2023-06-27] MEDS ORDERED: FLONASEALLERGY NS (10:00)
[2023-06-27] MEDS ORDERED: LOMOTIL 0.025 M1 TAB PO (10:08)
[2023-06-27] MEDS ORDERED: AMBIEN 10MG10 MG PO (10:12)
--- NOTE | 2023-06-27 11:29 | NUR ---
PT ADMITTED TO MEDICAL FLOOR FROM ED. SKIN ASSESSED AND FOUND FOLLOWS: LT FOOT HAS SCABBING TO 2 & 3RD TOES, 4TH TOE AMPUTATION; LT UPPER GLUTE HAS AN ABRASION THAT IS SCABBED WITH ANOTHER SCAB ABOVE IT ON THE LOWER BACK; LT KNEE HS SCATTERED SCABBING, BILATERAL ARMS HAVE MULTIPLE SCATTERED SCABS IN DIFFERENT STAGES OF HEALING. BILATERAL LEGS ARE IAM, BUMPY, AND SKIN IS TOUGH; LOWER PANUS IS ALSO TOUGH AND LEATHERY FEELING/BUMPY PT WAS FOUND TO HAVE BEEN INCONTINENT OF STOOL AND URINE DURING SKIN ASSESSMENT AND WAS CLEANED UP AND A NEW BRIEF PUT IN PLACE
[2023-06-27] MEDS ORDERED: CREON 60000 U-11 ECC PO (15:01)
[2023-06-27] MEDS ORDERED: CREON 36000 PO (15:09)
[2023-06-27] MEDS ORDERED: HUMULIN R500 UNIT/1 SQ (15:32)
[2023-06-27] MEDS ORDERED: LOSARTAN-HCTZ 100-25 PO (16:06)
--- NOTE | 2023-06-27 16:10 | NUR ---
TROPONIN 8.389 AUTOMATION ENGINEERING MANAGER NOTIFIED FREIDA FROM HOSPITALIST TEAM AND MAGDALENO LOERA FROM CARDIOLOGY @ [id number]
[2023-06-27 17:22] LABS: PARTIAL THROMBOPLASTIN TIME 37.7 SECONDS (26.0-37.0)
--- NOTE | 2023-06-27 23:26 | NUR ---
patient sitting up in bed eating, alert and oriented x4. pt denies chest pain and has shortness of breath on exertion. IV in LH and RAC are patent, sites are clean dry and intact with heparin drip running at 10 ml/hr through LH IV. 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 scaly tough dry skin in BLE and panus, small scabbed abrasion on upper left buttocks and lower left back, scabs and bruising generalized on extremities. pt educated on transfer to [facility] in [place], pt picked up via EMS, pivot transfer to next bed, unsteady gait. EMS given pt paperwork and belongings. pt has no further needs, questions or concerns at this time. pt discharged at 2014. report called to [facility]if[facility] castell[facility] RN at 2054.
== END 2023-06-27 20:15 | disposition short-term general hospital (02) ==
LOC: COL.ER 05:37 → MEDICAL 08:21
PROVIDERS: Emergency Medicine; Nurse Practitioner; Nurse Practitioner Family; ADMIT Internal Medicine
DX: I21.4 Non-ST elevation (NSTEMI) myocardial infarction (principal); I10 Essential (primary) hypertension; E11.649 Type 2 diabetes mellitus with hypoglycemia without coma; E78.5 Hyperlipidemia, unspecified; E11.42 Type 2 diabetes mellitus with diabetic polyneuropathy; G47.30 Sleep apnea, unspecified; J30.9 Allergic rhinitis, unspecified; R79.89 Other specified abnormal findings of blood chemistry; E66.1 Drug-induced obesity; Z79.4 Long term (current) use of insulin; Z79.899 Other long term (current) drug therapy; Z79.84 Long term (current) use of oral hypoglycemic drugs; Z68.43 Body mass index [BMI] 50.0-59.9, adult; Z79.82 Long term (current) use of aspirin
CPT/HCPCS: A9500-JZ; G0378; J1644; J1815; J2785; Q9967

== ENCOUNTER 2023-12-01 05:17 | Emergency (ER) | payer MEDICAID ==
[~2023-12-01] VITALS: Ht 193 cm; Wt 204.5 kg
[~2023-12-01 05:17] MED LIST changes: +CREON 36000 PO; +CREON 60000 U-11 ECC PO; +HUMULIN R500 UNIT/1 SQ; +LOSARTAN-HCTZ 100-25 PO
[2023-12-01 05:21] VITALS: TEMP 97.1
[2023-12-01 05:25] LABS: COLLECTION METHOD CLEAN CATCH
[2023-12-01 05:33] LABS: PH 6.5 (5.0-8.5); URINE APPEARANCE CLOUDY (CLEAR/HAZY); URINE BLOOD 3+ (NEGATIVE); URINE COLOR RED (YELLOW); URINE GLUCOSE 3+ (NEGATIVE); URINE KETONE NEGATIVE (NEGATIVE); URINE NITRATE NEGATIVE (NEGATIVE); URINE PROTEIN(semi-quant) 4+ (NEGATIVE); URINE UROBILINOGEN 0.2 E.U/dL (0.2-1.0)
[2023-12-01 05:41] LABS: BASO % 0.4 % (0.0-2.0); EOS # 0.2 K/mm3 (0.0-0.7); EOS % 1.8 % (0.0-4.0); GRAN # 8.3 K/mm3 (1.4-6.5); GRAN % 73.2 % (42.2-75.2); HEMATOCRIT 43.2 % (42.0-52.0); HEMOGLOBIN 13.7 g/dl (13.5-18.0); LYMPH # 1.5 K/mm3 (1.2-3.4); LYMPH % 13.6 % (20.0-51.0); MEAN CELL VOLUME 83 fl (80.0-100.0); MEAN CORPUSCULAR HEMOGLOBIN 26 pg (27-31); MEAN CORPUSCULAR HGB CONC 32 g/dl (33.0-37.0); MEAN PLATELET VOLUME 11.1 fl (7.4-10.4); MONO # 1.2 K/mm3 (0.1-0.6); MONO % 10.5 % (1.7-9.3); PLATELET COUNT 216 K/mm3 (130-400); RED BLOOD COUNT 5.22 M/mm3 (4.20-5.60); REDCELL DISTRIBUTION WIDTH-CV 13.2 % (11.5-14.5)
[2023-12-01 05:55] LABS: CREATININE, serum 1.18 mg/dL (0.72-1.25); POTASSIUM 4.9 mEq/L (3.5-4.5)
[2023-12-01] MEDS ORDERED: NS 1,000 ML IV ONE (06:00)
[2023-12-01] MEDS ORDERED: Insulin Regular Human (NovoLIN R/HumuLIN R) SQ ONE ×2 (06:30→06:45)
[2023-12-01] MEDS ORDERED: Cefdinir 300 MG CAP PO ONE (06:45)
[2023-12-01] MEDS ORDERED: OMNICEF 300MG300 MG PO (06:47)
[2023-12-01 07:25] VITALS: BP 154/72; PULSE 89
== END 2023-12-01 07:38 | disposition home or self-care (01) ==
LOC: COL.ER 05:17
PROVIDERS: Emergency Medicine
DX: N39.0 Urinary tract infection, site not specified (principal); E11.65 Type 2 diabetes mellitus with hyperglycemia; E11.42 Type 2 diabetes mellitus with diabetic polyneuropathy; E66.01 Morbid (severe) obesity due to excess calories; Z79.4 Long term (current) use of insulin
CPT/HCPCS: J1815; J7030